=== PATIENT | female | born 1950 | race Caucasian/White ===

== ENCOUNTER 2016-12-12 05:38 | Day surgery (SDC) | payer MEDICARE, OTHER ==
--- NOTE | 2016-12-07 18:50 | PREOPHP ---
DATE OF ADMISSION: 12/12/2016 HISTORY OF PRESENT ILLNESS: This is a 66-year-old female 5, para 1, abortions 4. This judson ent has a history of having endometrial hyperplasia, prediabetes. She has been on Premarin vaginal cream and Prempro in a low dose. An ultrasound revealed endometrial hyperplasia. For this reason, she is undergoing a fractional D and C to rule out any malignancy. 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 She had a history of foot surgery, tonsillectomy, face lift, gallbladder, Obtryx sling, hysteroscopy, D and C in 2011 due to endometrial at which yadi mandel she had an endometrial ablation. She is hypertensive and she uses atenolol and hydrochlorothiazide . ALLERGIES: 1. VICODIN. 2. TYLENOL. SOCIAL HISTORY: Chronic smoker. FAMILY HISTORY: Hypertension. PHYSICAL EXAMINATION: VITAL SIGNS: Stable. She weighs 217, she is 5 feet 7 inches. Blood pressure is 120/80. She is af ebrile. GENERAL APPEARANCE: Good. Well-nourished, well-developed, not in acute distress. HEENT: Normal. NECK: Normal. LUNGS: Normal, clear. HEART: Normal sinus rhythm. BREASTS: Soft, nontender, no masses. ABDOMEN: Soft, nontender, no masses. GENITOURINARY: Area with normal vagina, normal cervix. Uterus retroverted, flexed. Bladder painfu l. EXTREMITIES: Normal. NEUROLOGIC: Normal. PSYCHIATRIC: Normal. DIAGNOSES: 1. Endometrial hyperplasia. 2. Prediabetes. 3. Hypertension. PLAN: She is undergoing a fractional D and C. She has been advised of the possible risks and possi ble complications of the procedure with her alternatives and options. Written information was provi ded, and she agreed to go ahead with the procedure with full understanding and no more questions. Dictated By: ISAURA HERNANDEZ/MONIE Conf#: [id number] DID#: [id number]
[2016-12-11 09:00] VITALS: BMI 32.8
[~2016-12-12] VITALS: Ht 170.2 cm; Wt 98.2 kg
[2016-12-12] VITALS (14 sets, daily range): BP systolic 98–143; BP diastolic 52–81; PULSE 54–64; RESP 12–25; Ht 170.2 cm; Wt 98.2 kg
[~2016-12-12 05:38] MED LIST: CEFAZOLIN 2 GM/50 ML (PMX) 50 ML IVPB ONE
[2016-12-12] MEDS ORDERED: DEXTROSE 5%-0.9% NACL 1,000 ML IV SCH (06:00)
[2016-12-12] MEDS ORDERED: ATEN100T PO (07:14)
[2016-12-12] MEDS ORDERED: IBUP-1542 PO (07:14)
[2016-12-12] MEDS ORDERED: HYDR-3671 PO (07:14)
[2016-12-12] MEDS ORDERED: [UNRECOGNIZED DRUG - REMARK] (07:14)
[2016-12-12] MEDS ORDERED: METOCLOPRAMIDE 10 MG INJ ONE (07:40)
[2016-12-12] MEDS ORDERED: ONDANSETRON 4 MG INJ ONE (07:40)
[2016-12-12] MEDS ORDERED: PROPOFOL 40 ML ONE (07:40)
[2016-12-12] MEDS ORDERED: MILRINONE LACTATE 1 MG/ML VIAL ONE (07:40)
[2016-12-12] MEDS ORDERED: FENTAnyl 50 MCG/ML VIAL ONE (07:40)
[2016-12-12] MEDS ORDERED: KETOROLAC 30 MG INJ ONE (07:40)
[2016-12-12] MEDS ORDERED: MIDAZOLAM 1 MG/ML 2 ML INJ ONE (07:40)
[2016-12-12] MEDS ORDERED: CEFAZOLIN 1 GM INJ ONE (07:54)
--- NOTE | 2016-12-12 08:00 | HPN ---
Date/Time of Note Date/Time of Note DATE: 12/12/16 TIME: 08:00 Interval H&P Admission Note Pt. seen H&P reviewed: No system changes ISAURA RAO MD Dec 12, 2016 08:00
[2016-12-12] MEDS ORDERED: METOCLOPRAMIDE 10 MG INJ IV PRN (08:30)
[2016-12-12] MEDS ORDERED: ONDANSETRON 4 MG INJ IV PRN (08:30)
[2016-12-12] MEDS ORDERED: HYDROmorphONE (0.2 MG/ML) 10ML SYG IV PRN ×3 (08:30)
[2016-12-12] MEDS ORDERED: DIPHENHYDRAMINE 50 MG INJ IV PRN (08:30)
[2016-12-12] MEDS ORDERED: MEPERIDINE 25 MG INJ IV PRN (08:30)
--- NOTE | 2016-12-12 08:54 | PD.PPDC ---
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
--- NOTE | 2016-12-12 09:10 | OPR ---
Date/Time of Note Date/Time of Note DATE: 12/12/16 TIME: 09:01 Operative Report Free Text/Dictation Procedure: fractional D&C hysteroscopy. Patient was placed in the lithotomy position and the perineal vaginal area were prepped and draped and confirmatory examination under anesthesia revealed that she had a uterus that is hypertrophic with some external genitalia prolapse , the vaginal speculum was applied and the cervix was held with forceps ECC was done and the uterus was dilated with Hegar dilators and the hysteroscope was applied and the visualization of the endometrial lining revealed that there was a polyp or a fibroid in the bottom part of the uterus near the cervix the ECC was sent for pathology now the hysteroscope was removed and the scraping of the area was done with very scanty tissue observed. The polyp was very attached to the wall to be removed. This will be followed with ultrasounds and if it is growing an ablation of the area will be done. The patient tolerated the procedure well and left the OR awake and stable, sponge counts and instruments counts were correct and intravenous antibiotics were given for prophylaxis. Procedure Date: Dec 12, 2016 Preoperative Diagnosis ENDOMETRIAL HYPERPLASIA PREDIABETES HYPERTENSION Postoperative Diagnosis SAME ENDOMETRIAL POLYP Operation Performed HYSTEROSCOPY D&C Surgeon: ISAURA RAO MD Anesthesia: general Anesthesiologist: SIRIA LOYD MD Estimated Blood Loss: minimal Complications: None Pt Condition Post Procedure: stable Disposition: PACU ISAURA RAO MD Dec 12, 2016 09:09
[2016-12-12] MEDS ORDERED: KETOROLAC 30 MG INJ IV PRN (09:30)
== END 2016-12-12 11:55 | disposition home or self-care (01) ==
LOC: SDS 05:38
PROVIDERS: ATTEND Obstetrics & Gynecology
DX: N72 Inflammatory disease of cervix uteri (principal); I10 Essential (primary) hypertension; R73.03 Prediabetes
CPT/HCPCS: 58558; J0690; J1885; J2175; J2250; J2405; J2765; J3010; 88305; J2260